=== PATIENT | female | born 1955 | race Caucasian/White ===

== ENCOUNTER 2019-04-30 17:11 | Observation (INO) | payer MEDICARE, OTHER ==
[~2019-04-30] VITALS: Ht 165.1 cm; Wt 81.6 kg
[2019-04-30 17:26] VITALS: BP 132/70
[2019-04-30] MEDS ORDERED: OMEPRAZOLE40 MG PO (17:44)
[2019-04-30] MEDS ORDERED: NEURONTIN300 MG PO (17:44)
[2019-04-30] MEDS ORDERED: ATORVASTATIN CA80 MG PO (17:45)
[2019-04-30] MEDS ORDERED: METFORMIN HCL500 M3 PO (17:45)
[2019-04-30] MEDS ORDERED: MIRAPEX0.125 MG PO (17:46)
[2019-04-30] MEDS ORDERED: MELOXICAM15 MG PO (17:47)
[2019-04-30] MEDS ORDERED: LASIX 40 MG TAB40 MG PO (17:48)
[2019-04-30] MEDS ORDERED: DULOXETINE HCL30 MG PO (17:48)
[2019-04-30] MEDS ORDERED: LISINOPRIL-HCT1 EACH PO (17:49)
[2019-04-30] MEDS ORDERED: MINOCYCLINE HC100 M2 PO (17:49)
[2019-04-30] MEDS ORDERED: TRESIBA FL100 UNIT/1 SUBQ (17:52)
[2019-04-30] MEDS ORDERED: HYDROCODON-ACE1 EAC7 PO (17:53)
[2019-04-30 18:18] LABS: HEMATOCRIT 43.8 % (37.0-47.0); HEMOGLOBIN 15.1 gm/dL (12.0-15.0); MCH 29.9 pg (26.0-34.0); MCHC 34.6 g/dL (28.0-37.0); MCV 86.6 fL (80.0-100.0); MPV 7.9 fl. (7.2-11.1); RBC 5.06 mil/uL (4.20-5.00); RDW-CV 15.2 % (10.5-14.5); WBC 9.9 thou/uL (4.0-11.0)
--- NOTE | 2019-04-30 18:27 | NUR ---
PT ADMITTED WITH RIGHT FOOT ULCER. PT ALERT AND ORIENTED. PT ORIENTED TO ROOM. PT DENIED ANY QUESTIONS OR CONCERS. FALL RISK PRECAUTIONS IN PLACE. HOURLY ROUNDING COMPLETED. WILL CONTINUE TO MONITOR.
[2019-04-30 18:28] LABS: APTT 26.9 Seconds (25.0-31.3); PROTIME 9.9 Seconds (9.20-11.50)
[2019-04-30 18:41] LABS: ALBUMIN 3.5 g/dL (3.4-5.0); CALCIUM 8.6 mg/dL (8.5-10.1); CREATININE 0.9 mg/dL (0.6-1.3); TOTAL BILIRUBIN 0.3 mg/dL (<0.1-1.0)
[2019-04-30 21:00] VITALS: BP 123/61
--- NOTE | 2019-05-01 05:58 | NUR ---
PATIENT HAS SLEPT WELL THROUGHOUT THE NIGHT. VSS ON RA. MEDICATION GIVEN ORDERED AND CHARTED. PICTURES OF FOOT ULCER TAKEN AND PUT IN CHART. NEW IV INSERTED IN LEFT FOREARM-SL. PATIENT INSTRUCTED TO USE CALL LIGHT WHEN NEEDING ASSISTANCE. HOURLY ROUNDS MADE. WILL CONTINUE WITH PLAN OF CARE AND NURSING TO MONITOR.
[2019-05-01 07:20] VITALS: BP 133/79
[2019-05-01] MEDS ORDERED: ASA81BEC PO (14:05)
[2019-05-01] MEDS ORDERED: PLAVIX 75 MG TA75 MG PO (14:05)
[2019-05-01 14:06] VITALS: BP 133/79
[2019-05-01 14:27] VITALS: BP 133/79
--- NOTE | 2019-05-01 14:27 | NUR ---
PT GIVEN DISCHARGE INFORMATION. PRESCRIPTIOSN FAXED TO PHARMACY. IV'S REMOVED. WOUND BANDAGED UP. FALL RISK PRECAUTIONS IN PLACE. HOURLY ROUNDING COMPLETED. PT LEFT AMBULATORY WITH NURSING STAFF TO HOME.
== END 2019-05-01 14:28 | disposition home or self-care (01) ==
LOC: M.ORTHSURG 17:11
PROVIDERS: Podiatrist Foot & Ankle Surgery; ADMIT Internal Medicine
DX: E11.621 Type 2 diabetes mellitus with foot ulcer (principal); L97.419 Non-pressure chronic ulcer of right heel and midfoot with unspecified severity; E11.51 Type 2 diabetes mellitus with diabetic peripheral angiopathy without gangrene; I10 Essential (primary) hypertension; F17.210 Nicotine dependence, cigarettes, uncomplicated

== ENCOUNTER → 2019-06-04 | Outpatient (CLI) | payer MEDICARE, OTHER ==
[~2019-06-04] MED LIST: ASA81BEC PO; ATORVASTATIN CA80 MG PO; DULOXETINE HCL30 MG PO; HYDROCODON-ACE1 EAC7 PO; LASIX 40 MG TAB40 MG PO; LISINOPRIL-HCT1 EACH PO; MELOXICAM15 MG PO; METFORMIN HCL500 M3 PO; MINOCYCLINE HC100 M2 PO; MIRAPEX0.125 MG PO; NEURONTIN300 MG PO; OMEPRAZOLE40 MG PO; PLAVIX 75 MG TA75 MG PO; TRESIBA FL100 UNIT/1 SUBQ
[2019-06-04 13:37] LABS: HEMATOCRIT 47.5 % (37.0-47.0); HEMOGLOBIN 16.3 gm/dL (12.0-15.0)
== END ==
LOC: M.LAB 13:19
PROVIDERS: Surgery Vascular Surgery
DX: I70.213 Atherosclerosis of native arteries of extremities with intermittent claudication, bilateral legs (principal)

== ENCOUNTER → 2019-06-23 | Day surgery (SDC) | payer MEDICARE, OTHER ==
[~2019-06-23] VITALS: Ht 165.1 cm; Wt 90.7 kg
[~2019-06-23] MED LIST changes: +TRULICITY1.5 MG/0.5 SUBQ
--- NOTE | ~2019-06-23 | OP ---
[address] [address] OPERATIVE REPORT Name: MULU EID Room: [facility]#: [id number] Admission: 06/23/19 Attend Phys: Ana M Connelly DPM Discharge: Date of : 57 Report #: [id number] THIS REPORT FOR: //name// cc: Geovani Nieto Steven D. DO ~ THIS REPORT FOR: //name// CC: Ana M Nieto DATE OF SERVICE: 06/23/2019 SURGEON: Ana M Connelly DPM PREOPERATIVE DIAGNOSES: Arterial ulcer, right fifth metatarsophalangeal joint laterally; exostosis, right fifth metatarsal head. POSTOPERATIVE DIAGNOSES: Arterial ulcer, right fifth metatarsophalangeal joint laterally; exostosis, right fifth metatarsal head. PROCEDURE: Excision of ulceration; exostectomy, right fifth metatarsal head; surgical debridement of devitalized tissue and application of Stravix biological graft 3 x 6 unit. PATHOLOGY: Ulceration, right fifth, for culture, aerobic, anaerobic, Gram stain, fungal and AFB and a portion of it for micro and gross exam. ANESTHESIA: Local with IV sedation. HEMOSTASIS: Right pneumatic ankle tourniquet was not inflated throughout the procedure. ESTIMATED BLOOD LOSS: Less than 5 mL. MATERIALS: A 4-0 Vicryl, 3-0 nylon and a 3 x 6 Stravix graft. INJECTABLES: A 30 mL of 1:1 mix of 1% lidocaine plain and 0.5% Marcaine plain preoperatively and 20 mL of 0.5% Marcaine plain postoperatively. DESCRIPTION OF PROCEDURE: The patient was brought to the OR and placed in a supine position, at which time, anesthesia was administered. A well-padded pneumatic ankle tourniquet was placed 1 cm above the medial malleoli. Please note ankle tourniquet was not elevated at all during the procedure, a timeout was called, patient identified along with any allergies, procedures to be performed, and any other patient identifiers that we needed to know within the OR then local block performed. The patient was then prepped [place] [address] OPERATIVE REPORT Name: MULU EID Room: [facility]#: [id number] Admission: 06/23/19 Attend Phys: Ana M Connelly DPM Discharge: Date of : 57 Report #: [id number] usual sterile and aseptic manner. The lateral aspect of the right forefoot was identified. The ulceration was circumscribed with a #15 blade. The incision was carried down through subcutaneous tissue, taking care to remove any devitalized tissue with it. This ulceration was removed full thickness down to the subcutaneous tissue. This was removed and will be sent for pathology. Next, the incision was carried down to bone overlying the exostosis to the right fifth metatarsal head. The fifth metatarsal head was dissected free of all periosteal and ligamentous attachments. Utilizing sagittal saw, the head of the lateral portion of the fifth metatarsal was partially resected medially, plantarly and dorsally. Surgical site was irrigated. A portion of the 3 x 6 Stravix graft was cut fenestrated and used to cover the bone and ligamentous attachments and fill in the defect for the capsule around the fifth metatarsophalangeal joint. This was sutured into place with 4-0 Vicryl. Next, the remaining portion of the graft was sutured into skin utilizing 3-0 nylon. This portion of the graft was fenestrated. Once that was sutured into the skin, it was remodeled. The site was again irrigated. An additional 20 mL of 0.5% Marcaine plain was infiltrated into the surgical site. Surgical site was dressed with Xeroform gauze soaked 4 x 4s, additional 4 x 4s, soft roll, Kerlix and an Suraj bandage. Please note vascular status remained intact to the right lateral forefoot throughout the procedure. The patient tolerated the procedure well and left the OR with vital signs stable and vascular status intact. By: [id number] M Connelly DPM /freda
[2019-06-23 06:40] LABS: HEMATOCRIT 42.7 % (37.0-47.0); HEMOGLOBIN 14.4 gm/dL (12.0-15.0); MCH 29.8 pg (26.0-34.0); MCHC 33.7 g/dL (28.0-37.0); MCV 88.4 fL (80.0-100.0); MPV 7.3 fl. (7.2-11.1); RBC 4.83 mil/uL (4.20-5.00); RDW-CV 16.3 % (10.5-14.5); WBC 10.7 thou/uL (4.0-11.0)
[2019-06-23 06:48] LABS: CALCIUM 8.9 mg/dL (8.5-10.1); CREATININE 0.9 mg/dL (0.6-1.3); POTASSIUM 4.9 mmol/L (3.5-5.1)
--- NOTE | 2019-06-25 12:07 | PATH ---
[address] [address] PATHOLOGY RPT PROCEDURE Name: MULU CUNNINGHAM Lor Room: [facility]#: [id number] Admission: 06/23/19 Date of : 57 Discharge: Report #: [id number] Path Case #: [id number] [facility] Accession Number: [id number] . 01 Material submitted: . foot - RIGHT FOOT, LATERAL ULCER. Modifiers: right, lateral . 01 Clinical history: . Diabetic with foot ulcer . 02 Diagnosis: Right foot lateral ulcer: - Benign skin with nonspecific ulceration, fibrosis and extensive acute and chronic inflammation of soft tissues. . (RENEE:mml; 06/24/2019) [facility] 06/24/2019 1553 Local . 02 Electronically signed: . Wero De La Torre MD, Pathologist NPI- [id number] . 01 Gross description: . The specimen is received in formalin, labeled "Mulu Cunningham, right foot lateral ulcer" and consists of an ulcerated segment of pink-thomas to green-brown skin measuring 2.4 x 1.9 x 0.5 cm. Drapery Maker sections are submitted in A1. (SDY; 06/23/2019) SYU/SYU 06/23/2019 1629 Local . 02 Pathologist provided ICD-10: E11.621, M79.89 . 02 CPT . 243853 Specimen Comment: A courtesy copy of this report has been sent to [phone] Specimen Comment: [phone] Specimen Comment: Report sent to / DR YANG Performed at: [address], [place] [id number] MD Ángel Jarrell MD Phone: [phone] Performed at: 02 [facility] [address], [place], [place] [id number] MD Wero De La Torre MD Phone: [phone]
--- NOTE | 2019-07-03 14:56 | EKG ---
[place] [address] ELECTROCARDIOGRAM REPORT Name: MULU EID Room: [facility]#: [id number] Admission: 06/23/19 Attend Phys: Ana M Connelly DPM Discharge: Date of : 57 Date of Service: 06/23/[address] Report #: [id number] THIS REPORT FOR: //name// [facility] Test Date: 2019-06-23 Test Time: 07:21:15 Pat Name: MULU WISEILLIAN Department: Room: Gender: Gluer Machine Setup Operator: : [id number] Requested By: Ana M Connelly Order Number: [id number] Reading MD: Jeovanny Hammond Measurements Intervals [place] Rate: 66 P: 43 WA: 145 QRS: 9 QRSD: 88 T: 32 QT: 403 QTc: 423 Interpretive Statements Sinus rhythm No previous ECG available for comparison Electronically Signed On 06-23-2019 16:40:34 INSURANCE [employer] FINANCIAL SERVICES AGENT by Jeovanny Hammond [email or web address] <ELECTRONICALLY SIGNED> By: Jeovanny Hammond MD, [facility] 06/23/19 1640 0 0 Jeovanny Hammond MD, FACC /EPI
== END | disposition home or self-care (01) ==
LOC: M.SUR 06-16 05:31
PROVIDERS: Podiatrist Foot & Ankle Surgery
DX: E11.621 Type 2 diabetes mellitus with foot ulcer (principal); L97.519 Non-pressure chronic ulcer of other part of right foot with unspecified severity; M89.8X7 Other specified disorders of bone, ankle and foot; M79.89 Other specified soft tissue disorders; Z98.890 Other specified postprocedural states; Z79.899 Other long term (current) drug therapy; Z88.8 Allergy status to other drugs, medicaments and biological substances

== ENCOUNTER → 2019-08-10 | Day surgery (SDC) | payer MEDICARE, OTHER ==
[~2019-08-10] VITALS: Ht 165.1 cm; Wt 95.3 kg
[~2019-08-10] MED LIST changes: +CIPRO250 M2 PO; +NORCO 10-325 T1 EACH PO
--- NOTE | 2019-08-10 11:22 | OP ---
[address] [address] OPERATIVE REPORT Name: MULU EID Lor Room: [address] Cynthia#: [id number] Admission: 08/10/19 Attend Phys: Blanca Borja Discharge: Date of : 57 Report #: [id number] THIS REPORT FOR: //name// cc: Geovani Nieto Steven D. DO ~ THIS REPORT FOR: //name// CC: Ana M Castanon DATE OF SERVICE: 08/10/2019 SURGEON: Ana M Connelly D.P.M. REFORMATORY ATTENDANT: None. PREOPERATIVE DIAGNOSES: Cellulitis, right foot; osteomyelitis, right foot; and ischemic right forefoot. POSTOPERATIVE DIAGNOSIS: Cellulitis, right foot; osteomyelitis, right foot; and ischemic right forefoot. PROCEDURE: Transmetatarsal amputation, right foot. PATHOLOGY: Right forefoot for gross and microscopic examination and cultures to be obtained from osteomyelitis, right fifth ray. ANESTHESIA: General with local ankle block. HEMOSTASIS: Right pneumatic ankle tourniquet set at 250 mmHg pressure. ESTIMATED BLOOD LOSS: Less than 7 mL. MATERIALS: 2-0 chromic, 2-0 Vicryl, 2-0 nylon. INJECTABLES: 20 mL of 1% lidocaine plain preoperatively and 30 mL of 0.5% Marcaine plain postoperatively. DESCRIPTION OF PROCEDURE: The patient was brought to the OR and placed in a supine position, at which time, anesthesia was administered. A well-padded pneumatic ankle tourniquet was placed 1 cm above the right medial malleolus. Local block was performed to the left foot. The patient was then prepped and draped in the usual sterile aseptic manner. Timeout was called. The patient's procedures, allergies, and any other pertinent information were identified. All parties in the OR were in agreement. Attention [place] [address] OPERATIVE REPORT Name: MULU EID Lor Room: [address] Diana Marie#: [id number] Admission: 08/10/19 Attend Phys: Blanca Borja Discharge: Date of : 57 Report #: [id number] where the right tourniquet was elevated to 250 mmHg pressure. Next, a fishmouth type incision was made to the distal aspect of the right forefoot approximately midshaft to the metatarsals dorsally. Dissection was carried down to the level of bone, taking care to ensure a full-thickness flap dorsally. Any bleeding vessels were clamped and cauterized. Next, utilizing a sagittal saw, all 5 metatarsals were transected midshaft. Next, the plantar incision was made full thickness with care to make sure the ulceration was fully cut out on the right hand side. Once the plantar full-thickness flap was made, the remaining forefoot was removed, will be sent to pathology. Next, the remaining tissue was inspected and any devitalized tissue was then removed. Any large patent vessels were identified and cauterized or tied off. Surgical site was irrigated. Further bone resection was then performed due to extensive loss plantarly secondary to the ischemic ulcer, this was done with a sagittal saw and then care was taken utilizing a rongeur to remodel the remnants of the metatarsals, so no pressure was placed on the overlying skin. Next, utilizing chromic suture 2-0, the deep soft tissue layer was closed, taking the plantar flap and rotating it dorsally. At this point, a 7-mm drain was placed into the surgical site. Additional chromic closed over the flap from plantar to dorsal. Next, subcutaneous tissue was brought together with 2-0 Vicryl and the skin was then brought together with 2-0 nylon, taking care to place 5 horizontal mattress sutures to take some of the tension off the surgical wound. Next, remaining nylon was used to close the incision. The drain was tacked down to the medial aspect of the foot. A suction was placed on the drain. Surgical site was then dressed with Xeroform gauze, 4 x 4, Willie, soft roll, and Suraj wrap. Ankle tourniquet was deflated. An ankle block was performed with 30 mL of 0.5% Marcaine plain postoperatively. No bleeding was immediately identified through the drain. No bleeding was identified coming through the bandages. The patient tolerated procedure well and left the OR with vital signs stable and vascular status intact to the right foot. <ELECTRONICALLY SIGNED> By: Ana M Connelly DPM 08/10/19 1122 [id number] M Connelly DPM /freda
--- NOTE | 2019-08-14 15:08 | PATH ---
[address] [address] PATHOLOGY RPT PROCEDURE Name: MULU CUNNINGHAM Room: [address] Diana Marie#: [id number] Admission: 08/10/19 Date of : 57 Discharge: 08/10/19 Report #: [id number] Path Case #: [id number] [facility] Accession Number: [id number] . 01 Material submitted: . foot - RIGHT FOREFOOT 5TH METATARSAL HEAD. Modifiers: right . 01 Clinical history: . Osteomyelitis; cellulitis . 02 Diagnosis: Tissue submitted as "right forefoot fifth metatarsal head": - Benign right forefoot with nonspecific ulceration of dorsal/lateral aspect, acute inflammation of underlying soft tissues and osteomyelitis of underlying (fifth toe) bone with surgical margins of all 5 toes free of osteomyelitis. See comment. (RENEE:kyle; 08/14/2019) [facility] 08/14/2019 1227 Local . 02 Comment: Gross and microscopic findings discussed with Dr. Ana M Connelly at approximately 12:15 on 08/14/2019. (RENEE:biscuit packer; 08/14/2019) . 02 Electronically signed: . Wero De La Torre MD, Pathologist NPI- [id number] . 01 Gross description: . The specimen is received in saline, labeled "Mulu Cunningham, right forefoot osteomyelitis, right fifth metatarsal head". The specimen is forwarded to microbiology for cultures prior to histopathology. Upon arrival back at histology, the specimen is placed into formalin for proper fixation prior to sectioning. (CAA; 08/11/2019 . Received is a right forefoot amputation measuring 10.5 cm from medial to lateral, 9.7 cm from proximal to distal, and 4.4 cm from dorsal to plantar aspects. All five bone margins are blunt in appearance, consistent with transection. The nails are present on all five toes and display a pale thomas and slightly thickened appearance. On the dorsal/lateral aspect of the fifth toe, there is a poorly circumscribed, irregular in contour and dusky pulido-thomas lesion measuring 2.6 x 2.5 cm, which grossly abuts the soft tissue margin. The bone margins are inked as follows: Toe 1-black, toe 2-blue, toe 3-yellow, toe 4-red, toe 5-orange. The specimen is submitted representatively as follows: . A1 longitudinal cross-section through bone margin of toe 1, [place] [address] PATHOLOGY RPT PROCEDURE Name: MULU CUNNINGHAM Room: [address] Diana Marie#: [id number] Admission: 08/10/19 Date of : 57 Discharge: 08/10/19 Report #: [id number] Path Case #: [id number] decalcification A2 longitudinal cross-section through bone margin of toe 2, following decalcification A3 longitudinal cross section through bone margin of toe 3, following decalcification A4 longitudinal cross-section through bone margin of toe 4, following decalcification A5 longitudinal cross-section through bone margin of toe 5, following decalcification A6 horizontal cross-section through lesion on dorsal/lateral aspect of toe 5 to include underlying bone, following decalcification. . Upon careful inspection of the specimen container a separate segment of bone, consistent with a separate metatarsal head, is not identified. (CAA; 08/12/2019) [facility] 08/14/2019 1222 Local . 02 Pathologist provided ICD-10: M86.8X7, M79.89, L97.519 . 02 CPT . 560363, 044532 Specimen Comment: A courtesy copy of this report has been sent to [phone] Specimen Comment: Report sent to Performed at: [address], [place] [id number] MD Ángel Jarrell MD Phone: [phone] Performed at: 02 [facility] [address], [place], [place] [id number] MD Wero De La Torre MD Phone: [phone]
== END | disposition home or self-care (01) ==
LOC: EDSTATUS 06:17 → M.TBA 06:23 → M.SUR 06:23 → EDSTATUS 12:06 → M.TBA 13:00
PROVIDERS: ATTEND Podiatrist Foot & Ankle Surgery
DX: M86.8X7 Other osteomyelitis, ankle and foot (principal); L97.519 Non-pressure chronic ulcer of other part of right foot with unspecified severity; M79.89 Other specified soft tissue disorders; L03.115 Cellulitis of right lower limb; I99.8 Other disorder of circulatory system; I10 Essential (primary) hypertension; E11.9 Type 2 diabetes mellitus without complications; E78.00 Pure hypercholesterolemia, unspecified; F17.210 Nicotine dependence, cigarettes, uncomplicated; Z98.890 Other specified postprocedural states; Z79.899 Other long term (current) drug therapy; Z88.8 Allergy status to other drugs, medicaments and biological substances

== ENCOUNTER → 2019-09-11 | Outpatient (CLI) | payer MEDICARE, OTHER ==
[2019-09-11 11:40] VITALS: BP 146/70
--- NOTE | 2019-09-11 12:19 | NUR ---
RIGHT BASILKIC VESSEL ACCESSED FOR SINGLE LUMEN 4 FRENC POWER PICC. LINE PRE-TRIMMED TO 42CM AND ADVANCED TO THE ZERO FLOR WITH NO RESISTANCE MET. U[[ER ARM CIRCUMFERENCE ABOVE INSERTIONI SITE= 13". SHERLOCK MAGNET AND 3CG CONFIRMATION OF TIP TERMINATION AT THE CAVOATRIAL JUCTION APPRECIATED. GUIDEWIRE REMOVED, LINE FLUSHED AND REPORT GIVEN TO CARMELA RAMOS.
[2019-09-11 13:05] VITALS: BP 138/74
--- NOTE | 2019-09-11 13:55 | NUR ---
INFUSION COMPLETED AND TOLEATED WELL. PT MONITORED 45 MIN POST INFUSION. DISCHARGE REVIEWED. DENEIS QUESTIONS OR NEEDS AT DISCHARGE.
--- NOTE | 2019-09-23 08:51 | NUR ---
late entry for 09/11/19 Merropenem start time 1158 stop time 1255
== END ==
LOC: M.INFUS 09-10 11:50
DX: A49.8 Other bacterial infections of unspecified site (principal)